=== PATIENT | female | born 1965 | race American Indian/Alaskan Native ===

== ENCOUNTER 2016-07-18 14:36 | Emergency (ER) | payer OTHER ==
[2016-07-18 18:16] LABS: Alanine Aminotransferase 12 units/L (7-56); Albumin 4.1 g/dL (3.9-5); Alkaline Phosphatase 82 units/L (35-129); Anion Gap 19 mmol/L; Bilirubin,Total 0.5 mg/dL (0.1-1.2); Blood Urea Nitrogen 8 mg/dL (7-17); Calcium 9.3 mg/dL (8.4-10.2); Carbon Dioxide 24 mmol/L (22-30); Chloride 100.6 mmol/L (98-107); Glucose 86 mg/dL (65-100); Lipase 37 units/L (13-60); Potassium 4.5 mmol/L (3.6-5.0); Sodium 139 mmol/L (137-145); Total Protein 8.2 g/dL (6.3-8.2)
[2016-07-18 18:18] LABS: Eosinophils % (Auto) 0.7 % (0.0-4.3); Hematocrit 43.6 % (30.3-42.9); Hemoglobin 13.8 gm/dl (10.1-14.3); Mean Corpuscular HGB Conc 32 % (30-34); Mean Corpuscular Hemoglobin 26 pg (28-32); Mean Corpuscular Volume 82 fl (79-97); Platelet Count 272 K/mm3 (140-440); Red Blood Count 5.34 M/mm3 (3.65-5.03); Red Cell Distribution Width 16.3 % (13.2-15.2); White Blood Count 4.7 K/mm3 (4.5-11.0)
[2016-07-18 19:15] LABS: Bacteria,Urine 1+ /HPF (Negative); Bilirubin,Urine NEG (Negative); Blood,Urine NEG (Negative); Ketones,Urine NEG (Negative); Leukocyte Esterase,Urine LG (Negative); Mucus,Urine 2+ /HPF; Nitrite,Urine NEG (Negative); Protein,Urine <15 mg/dL mg/dL (Negative); Urobilinogen,Urine < 2.0 mg/dL (<2.0)
[2016-07-19] MEDS ORDERED: PEPCID PO ONE (02:38)
--- NOTE | 2016-07-19 02:45 | Emergency Department Report ---
ED Abdominal Pain HPI - General Chief Complaint: Abdominal Pain Stated Complaint: ABD PAIN Time Seen by Provider: 07/19/16 02:20 Source: patient Mode of arrival: Ambulatory Limitations: No Limitations - History of Present Illness Initial Comments: Patient is a 51-year-old female with no past medical history presenting to the ED with epigastric pain times one week. Patient reports she gets discomfort in the epigastric region after meals. Patient reports no history of gastritis, ulcer, abdominal trauma or prior history.Otherwise no fevers, chills, NVD, early satieity, bloating, SOB, CP, travel, or sick contacts. No history of EGD or colonoscopy MD Complaint: abdominal pain -: week(s) Location: epigastric Radiation: none Migration to: no migration Severity: moderate Severity scale (0 -10): 8 Quality: sharp, burning Improves With: rest Worsens With: eating Associated Symptoms: denies other symptoms - Related Data Previous Rx's Medication Instructions Recorded Last Taken Type Cefdinir 300 mg PO BID #14 capsule 07/19/16 Unknown Rx Famotidine [Pepcid] 20 mg PO BID #30 tablet 07/19/16 Unknown Rx Allergies Allergy/AdvReac Type Severity Reaction Status Date / Time No Known Allergies Allergy Unverified 07/18/16 17:19 ED Review of Systems ROS: Stated complaint: ABD PAIN Other details as noted in HPI Comment: All other systems reviewed and negative ED Past Medical Hx - Past Medical History Previous Medical History?: No - Surgical History Past Surgical History?: Yes Additional Surgical History: - Social History Smoking Status: Never Smoker Substance Use Type: None - Medications Home Medications: Home Medications Medication Instructions Recorded Confirmed Last Taken Type Cefdinir 300 mg PO BID #14 capsule 07/19/16 Unknown Rx Famotidine [Pepcid] 20 mg PO BID #30 tablet 07/19/16 Unknown Rx ED Physical Exam - General Limitations: No Limitations General appearance: alert, in no apparent distress - Head Head exam: Present: atraumatic, normocephalic - Eye Eye exam: Present: normal appearance - ENT ENT exam: Present: mucous membranes moist - Neck Neck exam: Present: normal inspection - Respiratory Respiratory exam: Present: normal lung sounds bilaterally. Absent: respiratory distress - Cardiovascular Cardiovascular Exam: Present: regular rate, normal rhythm. Absent: systolic murmur, diastolic murmur, rubs, gallop - GI/Abdominal GI/Abdominal exam: Present: soft, normal bowel sounds. Absent: distended, tenderness, guarding, rebound, hyperactive bowel sounds, mass, pulsatile mass, hernia - Extremities Exam Extremities exam: Present: normal inspection - Back Exam Back exam: Present: normal inspection - Neurological Exam Neurological exam: Present: alert, oriented X3 - Psychiatric Psychiatric exam: Present: normal affect, normal mood - Skin Skin exam: Present: warm, dry, intact, normal color. Absent: rash ED Course Vital Signs 07/18/16 07/18/16 17:14 23:50 Temperature 98.1 F 98.0 F Pulse Rate 66 66 Respiratory 18 18 Rate Blood Pressure 158/87 151/97 O2 Sat by Pulse 100 100 Oximetry ED Medical Decision Making - Lab Data Result diagrams: 07/18/16 17:46 07/18/16 17:46 - Medical Decision Making Results discussed with the patient. Pt will be treated for UTI and pecid BID. Instructed patient to follow up with her PMD and if her sx persist she will need an eval with a food service cashier. Pt understood Critical care attestation.: If time is entered above; I have spent that time in minutes in the direct care of this critically ill patient, excluding procedure time. ED Disposition Clinical Impression: Epigastric abdominal pain, UTI (urinary tract infection) Disposition: DISCHARGED TO HOME OR SELFCARE Is pt being admited?: No Condition: Stable Instructions: Abdominal Pain (ED), Urinary Tract Infection in Women (ED) Prescriptions: Cefdinir 300 mg PO BID #14 capsule Famotidine [Pepcid] 20 mg PO BID #30 tablet Referrals: PRIMARY CARE, [Primary Care Provider] - 3-5 Days
[2016-07-19 03:55] VITALS: BP 140/85
== END 2016-07-19 03:59 | disposition home or self-care (01) ==
LOC: ED 14:36
DX: N39.0 Urinary tract infection, site not specified (principal); R10.13 Epigastric pain
CPT/HCPCS: 36415; 80053; 81001; 83690; 85025; 99283

== ENCOUNTER 2016-07-24 06:40 | Emergency (ER) | payer OTHER ==
[2016-07-24 07:25] LABS: Hematocrit 39.8 % (30.3-42.9); Hemoglobin 13.1 gm/dl (10.1-14.3); Mean Corpuscular HGB Conc 33 % (30-34); Mean Corpuscular Hemoglobin 27 pg (28-32); Mean Corpuscular Volume 81 fl (79-97); Platelet Count 252 K/mm3 (140-440); Red Blood Count 4.93 M/mm3 (3.65-5.03); White Blood Count 5.4 K/mm3 (4.5-11.0)
[2016-07-24 07:39] LABS: Alanine Aminotransferase 14 units/L (7-56); Albumin/Globulin Ratio 1.2 %; Alkaline Phosphatase 77 units/L (35-129); Anion Gap 17 mmol/L; BUN/Creatinine Ratio 13.75; Bilirubin,Total 0.3 mg/dL (0.1-1.2); Blood Urea Nitrogen 11 mg/dL (7-17); Calcium 8.8 mg/dL (8.4-10.2); Carbon Dioxide 24 mmol/L (22-30); Chloride 104.2 mmol/L (98-107); Glucose 85 mg/dL (65-100); Lipase 46 units/L (13-60); Potassium 4.1 mmol/L (3.6-5.0); Sodium 141 mmol/L (137-145); Total Protein 7.4 g/dL (6.3-8.2)
[2016-07-24 08:50] LABS: Bacteria,Urine 1+ /HPF (Negative); Bilirubin,Urine NEG (Negative); Blood,Urine NEG (Negative); Ketones,Urine NEG (Negative); Leukocyte Esterase,Urine LG (Negative); Mucus,Urine FEW /HPF; Nitrite,Urine NEG (Negative); Protein,Urine <15 mg/dL mg/dL (Negative); Urobilinogen,Urine < 2.0 mg/dL (<2.0)
[2016-07-24 09:17] LABS: Blastocytes % (Manual) 0 %
[2016-07-24 09:18] LABS: Basophils % (Manual) 0 % (0.0-1.8); Diff Status Complete; Giant Platelets 1+; Large Platelets 2+; RBC Morphology Normal
--- NOTE | 2016-07-24 12:19 | Emergency Department Report ---
HPI - General Chief Complaint: Abdominal Pain Time Seen by Provider: 07/24/16 11:52 - HPI HPI: The patient is a 51-year-old female presents for evaluation of abdominal pain for the past 6 days. The patient reports left upper quadrant, left lower quadrant, suprapubic abdominal pain, constant since onset, cramping and pressure -like in quality, 5/10 in severity. She reports associated dysuria. The patient denies fever, chills, night sweats, diarrhea, blood in the stool, dark tarry stool, hematuria, flank pain, vaginal discharge, inability to pass flatus or defecate. ED Past Medical Hx - Past Medical History Previous Medical History?: No - Surgical History Additional Surgical History: - Social History Smoking Status: Never Smoker Substance Use Type: None - Medications Home Medications: Home Medications Medication Instructions Recorded Confirmed Last Taken Type Cefdinir 300 mg PO BID #14 capsule 07/19/16 07/24/16 Unknown Rx Famotidine [Pepcid] 20 mg PO BID #30 tablet 07/19/16 07/24/16 Unknown Rx Acetaminophen/Codeine [Tylenol #3] 1 tab PO Q6H PRN #14 tab 07/24/16 Unknown Rx Levofloxacin [Levaquin] 750 mg PO QDAY #7 tablet 07/24/16 Unknown Rx Omeprazole Magnesium [PriLOSEC Otc] 20 mg PO QDAY #14 tablet. 07/24/16 Unknown Rx ED Review of Systems ROS: Stated complaint: MEDICATION NO WORKING Other details as noted in HPI Constitutional: denies: fever ENT: denies: throat or neck pain Respiratory: denies: cough, shortness of breath Cardiovascular: denies: chest pain Endocrine: denies unexplained weight loss or gain Gastrointestinal: reports abdominal pain, nausea Genitourinary: reports dysuria Musculoskeletal: denies: leg swelling Skin: denies: rash Neurological: denies: headache Hematological/Lymphatic: denies: easy bleeding or easy bruising Psych: denies sadness or hopelessness Physical Exam - Physical Exam Vital Signs: Vital Signs 07/24/16 06:52 Temperature 98 F Pulse Rate 65 Respiratory 16 Rate Blood Pressure 147/94 Blood Pressure 147/94 [Left] O2 Sat by Pulse 100 Oximetry Physical Exam: General: well-nourished, well-developed, no acute distress Head: Normocephalic, atraumatic Eyes: normal sclera ENT: Mucous membranes are pink and moist Neck: trachea midline, neck supple, No neck stiffness, no cervical adenopathy Respiratory: Breath sounds equal bilaterally, no wheezing, rales, or rhonchi Cardio: S1 and S2 present, no murmurs, rubs, gallops, capillary refill is brisk Abdomen: Normoactive bowel sounds, soft abdomen, left lower quadrant and suprapubic tenderness to palpation present, no rigidity, no guarding or rebound tenderness Chest WALL/Back: No tenderness to palpation of the chest wall, no CVA tenderness with percussion Musc: No pitting edema Skin: No rash Neuro: no facial drooping, normal speech Psych: Normal affect ED Course Vital Signs 07/24/16 06:52 Temperature 98 F Pulse Rate 65 Respiratory 16 Rate Blood Pressure 147/94 Blood Pressure 147/94 [Left] O2 Sat by Pulse 100 Oximetry ED Medical Decision Making - Lab Data Result diagrams: 07/24/16 07:09 07/24/16 07:09 - Medical Decision Making The patient was seen and examined by myself. The patient is placed on a employment representative and continuous pulse ox. On initial evaluation, the patient was found to be in no distress. Evaluation orders are placed. The patient is given a tablet of Tylenol for her pain and Zofran for her nausea. Lab results revealed elevated urine WBC with positive leukocyte esterase, consistent with UTI, and otherwise labs were non-concerning including serum WBC, hemoglobin, hematocrit, electrolytes, renal function, LFTs, lipase. The patient is given a prescription for Levaquin for treatment of her urinary tract infection. The patient was reevaluated and reported that their symptoms were markedly improved. The patient is stable for discharge with outpatient follow-up. The patient is given follow-up and return instructions. The patient expressed understanding and agreed with the plan. The patient is discharged in stable condition. Critical care attestation.: If time is entered above; I have spent that time in minutes in the direct care of this critically ill patient, excluding procedure time. ED Disposition Clinical Impression: Epigastric abdominal pain, Acute abdominal pain in left lower quadrant, Abdominal pain, suprapubic UTI (urinary tract infection) Qualifiers: Urinary tract infection type: acute cystitis Hematuria presence: without hematuria Qualified Code(s): N30.00 - Acute cystitis without hematuria Disposition: DISCHARGED TO HOME OR SELFCARE Is pt being admited?: No Does the pt Need Aspirin: No Condition: Stable Instructions: Abdominal Pain (ED), Urinary Tract Infection in Women (ED) Prescriptions: Acetaminophen/Codeine [Tylenol #3] 1 tab PO Q6H PRN #14 tab PRN Reason: Pain Levofloxacin [Levaquin] 750 mg PO QDAY #7 tablet Omeprazole Magnesium [PriLOSEC Otc] 20 mg PO QDAY #14 tablet. Referrals: PRIMARY CARE, [Primary Care Provider] - 3-5 Days Time of Disposition: 12:18
[2016-07-24] MEDS: TYLENOL PO ONE (14:00)
[2016-07-24] MEDS: ALUM-MAG HYDROX-SIMETH 200-200-20MG/5ML PO ONE (14:00)
[2016-07-24] MEDS: LIDOCAINE VISCOUS 2% PO ONE (14:00)
[2016-07-24] MEDS: PEPCID PO ONE (14:01)
[2016-07-24] MEDS: ZOFRAN ODT PO ONE (14:01)
[2016-07-24 14:03] VITALS: BP 130/87
== END 2016-07-24 14:39 | disposition home or self-care (01) ==
LOC: ED 06:40
DX: N30.00 Acute cystitis without hematuria (principal)
CPT/HCPCS: 36415; 80053; 81001; 83690; 85007; 85025; 99284